=== PATIENT | female | born 1995 | race Caucasian/White ===

== ENCOUNTER → 2024-01-06 | Outpatient (CLI) | payer BC ==
--- NOTE | 2024-01-07 11:47 | CA ---
Transthoracic Echo Report Name: Kita Kulkarni Age: 28 Gender: F : 1995 Exam Date: 01/06/2024 16:29 Exam Location: [place] [facility] Ht (in): 63 Wt (lb): 130 Ordering Physician: Cody Romero DO Attending/Referring Phys: Cody Romero DO Transportation Lead Enriqueta Chapman RDCS Procedure CPT: Indications: R07.89 chest pain Cardiac Hx: Technical Quality: Good Contrast 1: Total Dose (mL): Contrast 2: Total Dose (mL): MEASUREMENTS (Male / Female) Normal Values 2D ECHO LV Diastolic Diameter PLAX 4.2 cm 4.2 - 5.9 / 3.9 - 5.3 cm LV Systolic Diameter PLAX 3.1 cm IVS Diastolic Thickness 0.8 cm 0.6 - 1.0 / 0.6 - 0.9 cm LVPW Diastolic Thickness 0.8 cm 0.6 - 1.0 / 0.6 - 0.9 cm LV Relative Wall Thickness 0.4 RV Internal Dim ED PLAX 2.7 cm LA Systolic Diameter LX 2.9 cm 3.0 - 4.0 / 2.7 - 3.8 cm LV Diastolic Volume MOD 4C 90.9 cm??? LV Systolic Volume MOD 4C 34.7 cm??? LV Ejection Fraction MOD 4C 61.9 % LV Cardiac Index MOD 4C 2907.0 cm???/min???m??? LV Diastolic Length 4C 8.4 cm LV Systolic Length 4C 6.5 cm LV Diastolic Volume MOD 2C 113.0 cm??? LV Systolic Volume MOD 2C 44.2 cm??? LV Ejection Fraction MOD 2C 60.9 % LV Cardiac Index MOD 2C 3555.6 cm???/min???m??? LV Diastolic Length 2C 7.9 cm LV Systolic Length 2C 6.3 cm M-MODE Aortic Root Diameter MM 2.7 cm LA Systolic Diameter MM 1.9 cm LA Ao Ratio MM 0.7 DOPPLER AV Peak Velocity 151.1 cm/s AV Peak Gradient 9.1 mmHg Mitral E Point Velocity 109.5 cm/s Mitral A Point Velocity 77.0 cm/s Mitral E to A Ratio 1.4 MV Deceleration Time 217.0 ms MV E' Velocity 16.2 cm/s Mitral E to MV E' Ratio 6.8 TR Peak Velocity 196.6 cm/s TR Peak Gradient 15.5 mmHg Right Ventricular Systolic Press 25.5 mmHg FINDINGS Left Ventricle Left ventricular ejection fraction is estimated at 60-65 %. Left ventricular cavity size normal. Left ventricular wall thickness normal. Normal left ventricular wall motion. Right Ventricle Normal right ventricular size and function. Mild pulmonary hypertension. Right Atrium Normal right atrial size. No right atrial thrombus or mass seen. Left Atrium Normal left atrial size. No left atrial thrombus or mass present. Mitral Valve Mildly thickened/myxomatous mitral valve leaflets. Mild to moderate mitral regurgitation. Aortic Valve Trileaflet aortic valve. No aortic valve stenosis or regurgitation. Tricuspid Valve Structurally normal tricuspid valve. Trace to mild tricuspid regurgitation. Pulmonic Valve Structurally normal pulmonic valve. Trace pulmonic regurgitation. Pericardium No pericardial effusion. Aorta Normal size aortic root and proximal ascending aorta. CONCLUSIONS Normal biventricular dimension and systolic function Thickened/myxomatous mitral valve leaflets with mild to moderate MR Previewed by: Dr. Roger Gillis MD (Electronically Signed) Final Date: 07 January 2024 11:46
== END | disposition home or self-care (01) ==
LOC: RADECHMAIN 16:11
PROVIDERS: ATTEND Family Medicine
DX: R07.89 Other chest pain (principal)
CPT/HCPCS: 93306

== ENCOUNTER → 2024-01-31 | Outpatient (CLI) | payer BC ==
--- NOTE | 2024-02-20 18:20 | P.CEMON ---
Diagnosis-palpitations and tachycardia Event monitor for 7 days shows sinus mechanism heart rates ranging from 50-126 beats a minute Average heart rates in the 70s Frequent PVCs, PVC burden of 7% No nonsustained ventricular tachycardia
--- NOTE | 2024-03-13 13:34 | EM ---
Diagnosis-palpitations and tachycardia Event monitor for 7 days shows sinus mechanism heart rates ranging from 50-126 beats a minute Average heart rates in the 70s Frequent PVCs, PVC burden of 7% No nonsustained ventricular tachycardia. MTDD
== END | disposition home or self-care (01) ==
LOC: RADECHMAIN 07:24
PROVIDERS: ATTEND Family Medicine
DX: R00.0 Tachycardia, unspecified (principal); R00.2 Palpitations
CPT/HCPCS: 93270